=== PATIENT | female | born 1995 | race Hispanic/Latino ===

== ENCOUNTER 2018-03-21 01:41 | Emergency (ER) | payer OTHER ==
[2018-03-21 01:55] VITALS: BP 131/77
[2018-03-21] MEDS ORDERED: PREDNISONE20 M1 PO (02:14)
[2018-03-21] MEDS ORDERED: Magic mouthwash PO (02:14)
[2018-03-21] MEDS ORDERED: IBUPROFEN600 M1 PO (02:14)
[2018-03-21] MEDS ORDERED: AMOXICILLIN875 M1 PO (02:14)
[2018-03-21] MEDS ORDERED: ZOFRAN ODT4 M1 SL (02:15)
--- NOTE | 2018-03-21 02:15 | ED THROAT/DENTAL COMPLAINT ---
History of Present Illness General Chief Complaint: General Adult Stated Complaint: " MY BODY SWOLLEN, FEVER,SORE THROAT,+N+V-D" Source: patient, old records, friend, Epic Exam Limitations: no limitations Vital Signs & Intake/Output Vital Signs & Intake/Output Vital Signs Date Time Temp Pulse Resp B/P B/P Pulse O2 O2 Flow FiO2 Mean Ox Delivery Rate 03/21 0156 Room Air 03/21 0155 97.9 112 18 131/77 96 Room Air Allergies Coded Allergies: No Known Allergies (03/21/18) Reconcile Medications Amoxicillin 875 MG TABLET 1 TAB PO BID tonsillitis Ibuprofen 600 MG TABLET 1 TAB PO Q6P PRN pain, fever with food [Magic mouthwash] 5-10 ML PO Q6P PRN throat pain viscous lidocaine:benadryl:maalox=1:1:1 Ondansetron (Zofran Odt) 4 MG TAB.RAPDIS 1 TAB SL TID PRN nausea Prednisone 20 MG TABLET 1 TAB PO BID tonsillitis Triage Note: PT TO TRIAGE C/O ACHES, FEVER, SORE THROAT, VOMITING X 4 DAYS. PT REPORTS WAS SEEN AT [facility]ALK-[facility] FOR SAME BUT UNABLE TO BE DIAGNOSED. Triage Nurses Notes Reviewed? yes Onset: 4 days Duration: day(s):, constant, continues in ED Timing: recent history Injury Environment: home Severity: moderate, severe No Modifying Factors: none Associated Symptoms: cough LMP (ages 10-50): unknown : No Patient currently breastfeeds: No HPI: 4 days prior to admission patient complains of fever chills sore throat ear pain dysuria nausea vomiting anorexia. She denies chest pain shortness breath headache rash bleeding. Past History Travel History Traveled to [place] past 21 day No Medical History Any Pertinent Medical History? 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 No Review of Systems Review of Systems Constitutional: Reports: see HPI, chills, fever. EENTM: Reports: see HPI, ear pain, throat pain. Respiratory: Reports: no symptoms. Cardiovascular: Reports: no symptoms. GI: Reports: no symptoms. Genitourinary: Reports: see HPI, dysuria. Musculoskeletal: Reports: no symptoms. Skin: Reports: no symptoms. Neurological/Psychological: Reports: no symptoms. Hematologic/Endocrine: Reports: no symptoms. Immunologic/Allergic: Reports: no symptoms. All Other Systems: Reviewed and Negative Physical Exam Physical Exam General Appearance: well developed/nourished, alert, awake, anxious, mild distress Head: atraumatic, normal appearance Eyes: Bilateral: normal appearance, PERRL, EOMI. Ears: Bilateral: canal normal, Tympanic normal. Nose: normal inspection Mouth/Throat: normal mouth inspection, tonsillar exudate, tonsillar swelling Neck: normal inspection, supple, full range of motion, trachea midline, lymphadenopathy (R), lymphadenopathy (L) Cardiovascular/Respiratory: normal breath sounds, normal peripheral pulses, regular rate/rhythm, no respiratory distress Back: normal inspection, normal range of motion Neurologic/Psych: no motor/sensory deficits, awake, alert, oriented x 3, normal gait, normal mood/affect Skin: intact, normal color, warm/dry Core Measures ACS in differential dx? No Sepsis Present: No Sepsis Focused Exam Completed? No Progress Differential Diagnosis: ricardo-tonsillar abscess, stomatitis/gingivitis, strep pharyngitis Plan of Care: Current Medications Sig/Del Start time Last Medication Dose Stop Time Status Admin Amoxicillin 750 MG ONCE ONE 03/21 215 UNVr (Amoxil) 03/21 216 Ibuprofen 600 MG ONCE ONE 03/21 215 UNVr (Motrin) 03/21 216 Prednisone 60 MG ONCE ONE 03/21 215 UNVr 03/21 216 Departure Departure Time of Disposition: 210 Disposition: HOME OR SELF CARE Condition: Stable Clinical Impression Primary Impression: Tonsillitis with exudate Secondary Impressions: Fever, Vomiting Referrals: Patient Has No Primary Care Dr (PCP/Family) Departure Forms: Customer Survey General Discharge Information Prescriptions: Current Visit Scripts Amoxicillin 1 TAB PO BID #20 TAB Prednisone 1 TAB PO BID #10 TAB Ibuprofen 1 TAB PO Q6P PRN pain, fever #30 TAB with food [Magic mouthwash] 5-10 ML PO Q6P PRN throat pain #270 ML viscous lidocaine:benadryl:maalox=1:1:1 Ondansetron (Zofran Odt) 1 TAB SL TID PRN nausea #10 TAB
== END 2018-03-21 02:28 ==
LOC: ERH 01:41
DX: J03.90 Acute tonsillitis, unspecified (principal)
CPT/HCPCS: J3101

== ENCOUNTER 2018-06-18 12:46 | Emergency (ER) | payer OTHER ==
[~2018-06-18] VITALS: Ht 167.6 cm; Wt 69.9 kg
[~2018-06-18 12:46] MED LIST: AMOXICILLIN875 M1 PO; IBUPROFEN600 M1 PO; Magic mouthwash PO; PREDNISONE20 M1 PO; ZOFRAN ODT4 M1 SL
[2018-06-18 13:02] VITALS: BP 105/67
[2018-06-18 14:15] LABS: ABSOLUTE BASOPHIL COUNT 0 /CUMM (0.0-0.2); ABSOLUTE EOSINOPHIL COUNT 0 /CUMM (0.0-0.7); ABSOLUTE GRANULOCYTE CT 5.5 /CUMM (1.4-6.5); ABSOLUTE LYMPH COUNT 2.4 /CUMM (1.2-3.4); ABSOLUTE MONOCYTE COUNT 0.3 /CUMM (0.10-0.60); BASOPHIL % 0.3 % (0.0-2.0); EOSINOPHIL % 0.3 % (0-5); GRANULOCYTE % 66.6 % (42.2-75.2); HEMATOCRIT 37.1 % (37-47); MEAN CORPUSCULAR HGB 31.3 PG (27.0-31.0); MEAN CORPUSCULAR HGB CONC 34.4 G/DL (33.0-37.0); MEAN PLATELET VOLUME 12.1 FL (7.4-10.4); RBC DISTRIBUTION WIDTH 13.4 % (11.5-14.5); RED BLOOD CELL CT 4.08 /CUMM (4.20-5.40); WHITE BLOOD CELL COUNT 8.2 /CUMM (4.8-10.8)
[2018-06-18 14:41] LABS: PLATELET COUNT 113 /CUMM (130-400)
== END 2018-06-18 15:01 | disposition admitted as inpatient to this hospital (09) ==
LOC: ERH 12:46
PROVIDERS: Physician Assistant Medical
DX: M54.9 Dorsalgia, unspecified (principal); R06.02 Shortness of breath; R10.9 Unspecified abdominal pain
CPT/HCPCS: 93005; 93010; 99281